=== PATIENT | male | born 1965 | race Caucasian/White ===

== ENCOUNTER 2016-11-23 12:43 | Outpatient (CLI) | payer OTHER ==
[~2016-11-23] VITALS: Ht 175.3 cm; Wt 70.0 kg
[2016-11-23 12:55] VITALS: BP 118/79; PULSE 89; RESP 16; Ht 175.3 cm; Wt 70.0 kg
--- NOTE | 2016-11-23 16:00 | CONS ---
[facility] INITIAL OUTPATIENT CONSULTATION NOTE PLACE OF SERVICE: [facility] DATE OF CONSULTATION: 11/23/2016 ASSESSMENT AND PLAN: A very pleasant and otherwise fairly healthy 51-year-old gentleman with a large right-sided groin hernia that has worsened over time and is in need of surgical repair. I recommended laparoscopic, possible open inguinal hernia repair likely with mesh. We also will evaluate the left side and if he needs it we can do a bilateral inguinal hernia repairs. I reviewed the operation in detail including the risks, benefits and alternatives with the patient (no family present during any of my discussions with the patient) and answered all his questions. The patient appeared to understand and agreed with the plans. With above assessment I have recommended the followin. Preoperative history and physical. 2. Schedule for laparoscopic, possible open, possible mesh, possible bilateral right inguinal hernia repair. Thank you again for allowing us to participate in the care of this very pleasant gentleman and I am certain his wonderful family. If there are any questions, please feel free to call me at [phone]. TOTAL VISIT TIME: 45 minutes of which more than half was spent in noxg-[id number]-apax discussion with the patient as well as coordination of care between multiple physicians and providers. Dear Dr. Britt: Thank you very much for allowing us to participate in the care of this very pleasant gentleman for his right inguinal hernia. HISTORY OF PRESENT ILLNESS: The patient is a very pleasant 51-year-old gentleman without significant past medical history and with only comorbidities of current smoker status and no prior surgeries who has been suffering from a right inguinal hernia for the last 2 years that appears to have been growing in size. He has not had any issues with bowel obstruction or visits to the emergency room because of this problem, however, he does describe worsening symptoms and at this point, he has enough changes to his lifestyle that he would like to have a surgical repair of this area. He reports having perhaps an early occurrence of bowel movements after eating food, but does not describe any significant diarrhea or constipation and no blood in the stool or urine. No other major complaints. PAST MEDICAL HISTORY: Tobacco user, approximately half to a pack per day. PAST SURGICAL HISTORY: None. ALLERGIES: NO KNOWN DRUG ALLERGIES. MEDICATIONS: Ketoconazole topical cream. SOCIAL HISTORY: The patient is single and is recently starting a monogamous relationship. He works in the [employer] business but does not have significant frequent lifting involved at work. Drinks to 3 to 6 beers per day and does not report any intravenous drug use. FAMILY HISTORY: Maternal grandfather with stomach or colon cancer. History of heart disease with two uncles. No diabetes, stroke or high blood pressure. REVIEW OF SYSTEMS: Other than the above-mentioned there are no other pertinent positives or pertinent negatives in a complete 14-point review of systems. He did report having hemorrhoids 12 years ago but they are gone currently. PHYSICAL EXAMINATION: GENERAL: The patient appears to be a very pleasant gentleman of non- descent, appearing stated age, sitting in a chair comfortably and in no acute distress. BMI is 22.8. VITAL SIGNS: He is afebrile and vital signs are stable. HEENT: Normocephalic and atraumatic. Extraocular muscles and hearing are grossly intact bilaterally and symmetrically. Sclerae are nonicteric. Oral cavity is clear; oral mucosa appeared to be pink and moist. Dentition: fair. NECK: Supple. There is no lymphadenopathy or JVD. There is no submental, submandibular or supraclavicular lymphadenopathy. CHEST: Rises symmetrically with each breath; patient is breathing comfortably. There are no audible wheezes, rales or rhonchi on the gross exam. HEART: HPulse is regular and palpable on the *right wrist. Capillary refill was normal. Carotid pulses are palpable bilaterally and symmetrically in the neck. EXTREMITIES: Lower extremities contain no pitting edema around the ankles bilaterally and symmetrically. ABDOMEN: Abdomen is soft, nontender and nondistended. There are no peritoneal signs or guarding. No evidence of ascites, organomegaly, caput medusae, engorged subcutaneous veins, or other abnormalities. GENITALIA: Right groin demonstrates a large inguinal hernia that appears to contain intestine (likely part of his colon). It is not associated with sharp tenderness and perhaps just mild discomfort. The skin overlying the area appears to be normal. Genitalia, otherwise, appeared to be normal. No evidence of hernia on the left. SKIN: Appears to be pink and feels warm to touch. NEUROLOGIC: Awake, alert, and follows commands appropriately. LABORATORY DATA: None for this visit. IMAGING: None for this visit. Dictated By: ANTHONY REYNA/MIGUEL Conf#: [id number] DID#: [id number] CC: YI BRITT MD;*EndCC* MTDD
== END 2016-11-23 16:48 | disposition home or self-care (01) ==
LOC: HPC 12:43
PROVIDERS: ATTEND Transplant Surgery
DX: K40.90 Unilateral inguinal hernia, without obstruction or gangrene, not specified as recurrent (principal); F17.200 Nicotine dependence, unspecified, uncomplicated
CPT/HCPCS: G0463

== ENCOUNTER 2016-12-10 07:00 | Day surgery (SDC) | payer OTHER ==
[2016-12-09 14:39] VITALS: BMI 22.8
[2016-12-10] VITALS (13 sets, daily range): BP systolic 103–142; BP diastolic 68–87; PULSE 64–88; RESP 8–21; Ht 175.3 cm; Wt 68.0 kg
[~2016-12-10] VITALS: Ht 175.3 cm; Wt 68.0 kg
[~2016-12-10 07:00] MED LIST: CEFAZOLIN 2 GM/50 ML (PMX) 50 ML IVPB ONE; D5W-0.45 NACL + KCL 20 MEQ 1,000 ML IV SCH
[2016-12-10] MEDS ORDERED: BUPIVACAINE 0.25%/EPI (SDV) 30 ML INJ ONE (09:07)
[2016-12-10] MEDS ORDERED: POLYMYXIN/BACITRACIN 1L IRRIG ONE (09:07)
--- NOTE | 2016-12-10 09:13 | HPN ---
Date/Time of Note Date/Time of Note DATE: 12/10/16 TIME: 09:00 Interval H&P Admission Note Pt. seen H&P reviewed: No system changes Pt. seen H&P reviewed. No system changes (I attest that I have seen and examined the patient and reviewed the operation in detail, as well as its risks , benefits and alternatives of the operation). I attest that I have seen and examined the patient and reviewed in detail the operation, and its associated risks, benefits and alternative. I have answered all the patient's questions to the best of my ability and the patient wishes to proceed. Please refer to rest of electronic medical record for additional updates. ANTHONY FOSTER M.D. Dec 10, 2016 09:13
[2016-12-10] MEDS ORDERED: ROCURONIUM 50 MG INJ ONE ×2 (09:24→10:27)
[2016-12-10] MEDS ORDERED: PROPOFOL 20 ML ONE (09:24)
[2016-12-10] MEDS ORDERED: MIDAZOLAM 1 MG/ML 2 ML INJ ONE (09:24)
[2016-12-10] MEDS ORDERED: ONDANSETRON 4 MG INJ ONE (09:25)
[2016-12-10] MEDS ORDERED: CEFAZOLIN 1 GM INJ ONE (09:42)
[2016-12-10] MEDS ORDERED: EPHEDrine SULFATE 50 MG/5 ML SYG ONE (10:12)
[2016-12-10] MEDS ORDERED: ROPIVACAINE 0.5 % 30 ML VIAL ONE (10:17)
[2016-12-10] MEDS ORDERED: HYDROmorphONE 2 MG/ML SYG ONE (10:19)
[2016-12-10] MEDS ORDERED: MEPERIDINE 25 MG INJ IV PRN (11:00)
[2016-12-10] MEDS ORDERED: LABETALOL HCL 20MG INJ IV PRN (11:00)
[2016-12-10] MEDS ORDERED: hydrALAzine 20 MG INJ IV PRN (11:00)
[2016-12-10] MEDS ORDERED: DIPHENHYDRAMINE 50 MG INJ IV PRN (11:00)
[2016-12-10] MEDS ORDERED: OXYCODONE/ACETAMINOPHEN (5/325) TAB PO PRN ×2 (11:00)
[2016-12-10] MEDS ORDERED: ONDANSETRON 4 MG INJ IV PRN (11:00)
[2016-12-10] MEDS ORDERED: METOCLOPRAMIDE 10 MG INJ IV PRN (11:00)
[2016-12-10] MEDS ORDERED: HYDROmorphONE (0.2 MG/ML) 10ML SYG IV PRN ×3 (11:00)
[2016-12-10] MEDS ORDERED: KETOROLAC 30 MG INJ ONE (11:07)
--- NOTE | 2016-12-10 11:59 | OPR ---
Date/Time of Note Date/Time of Note DATE: 12/10/16 TIME: 11:58 Operative Report Operative Findings [facility] INPATIENT OPERATIVE NOTE PLACE OF SERVICE: [facility] DATE OF SURGERY: 12/10/2016 PREOPERATIVE DIAGNOSIS: 1. Right inguinal hernia, indirect 2. History of tobacco use, approximately half to 1 pack per day POSTOPERATIVE DIAGNOSIS: 1. Right inguinal hernia, indirect 2. History of tobacco use, approximately half to 1 pack per day 3. Incidental umbilical hernia OPERATION: 1. Right inguinal hernia repair with mesh 2. Repair of incidental umbilical hernia without mesh SURGEON: Anthony Rye M.D. DATA TYPIST: Kieran ANESTHESIA: General endotracheal tube anesthesia ANESTHESIOLOGIST: Ryan Pereira M.D. BRIEF SUMMARY: An otherwise uncomplicated right inguinal hernia repair with mesh in addition to an incidental umbilical hernia without mesh were performed with findings of indirect umbilical hernia and an incidental umbilical hernia. BRIEF HISTORY: The patient is a very pleasant and otherwise fairly healthy 51- year-old gentleman with a large right-sided groin hernia that had worsened over time and was in need of surgical repair. I recommended laparoscopic, possible open inguinal hernia repair likely with mesh. I met with the patient (no family present during any of my discussions with the patient) and counseled t him regarding the possible options of treatment. We reviewed the operation in detail as well as the risks, benefits, alternatives, and expected outcomes of this operation. After careful consideration of all the risks, benefits, and alternatives, the patient appeared to understand those risks and wished to proceed with surgery. For a detailed report of my consultation with patient, please refer to my separate consultation note. STATEMENT OF THE INFORMED CONSENT: The patient appeared to understand the risks of the operation to include, but not be limited to risk of postoperative pain and scar tissue, possible infection or bleeding requiring other interventions such as opening the wound, placement of drainage catheters, or other operative interventions; possible injury to surrounding to structures including bowel, bladder, bile duct, or blood vessels, or solid organs such as liver, kidney, or pancreas requiring other interventions or procedures; possible leakage of bowel from anastomotic sites or suture lines causing significant increase in morbidity and mortality and requiring multiple interventions including but not limited to, placement of drainage catheters, imaging studies, as well as operative interventions; possible other source of sepsis such as urinary tract infections or pneumonias, or other sources of potentially life threatening problems such as deep venous thrombus formation causing pulmonary embolism, myocardial arrhythmias and infarctions, and even . After careful consideration of all their options, the patient and family appeared to understand and wished to proceed with surgery. DESCRIPTION OF PROCEDURE: After obtaining informed consent, the patient was brought into the operating room and was placed in a normal supine position, where successful general endotracheal tube anesthesia was performed. Intravenous access was already in place and intravenous antimicrobials had been appropriately chosen and dosed prior to the operation. The patient's abdominal skin was prepped and draped from the nipple line down to the level of the upper thighs including the groin and in the usual sterile fashion. We then called a surgical time-out where the patient's identification, date of , nature of the operation, allergies, presence of intravenous antimicrobials, presence of needed equipment, and any other concerns were reviewed and agreed upon by all members of the operating room team. We then started the operation by placing a 5 mm [employer] trocar into the peritoneal space through a left lower quadrant 5 mm skin incision and using direct entry technique visualizing all the layers of the abdominal wall as we entered. Upon entry to the peritoneal space, we did not notice any obvious evidence of injury to underlying structures. We insufflated the abdominal cavity to a maximum pressure of 15 mmHg and again noted no significant adhesions in the region and found presence of a right inguinal hernia as suggested by the preoperative evaluation. We placed a 12 mm trocar in the umbilical space as well as another 5 mm trocar in the right lower quadrant all under direct visualization and after injecting the sites with quarter percent Marcaine with epinephrine. With our instruments in place, we had excellent visualization and access to the pelvis. Inspection of the abdominal cavity showed no evidence of any hernia on the left side. There was a small umbilical hernia that was approximately 8 or 9 mm in greatest dimension that we discovered at the time of insertion of the 12 mm trocar. The right groin contained what appeared to be an indirect hernia without any abdominal contents within it. The bowel appeared to be viable. We then placed a transverse cut above the area of the hernia in the standard fashion on the peritoneum and took down the peritoneal covering from the right groin region until we were able to dissect the sac completely from the cord structures. After complete dissection of the sac from the cord structures, we ensured adequate hemostasis and then placed a 10 cm x 15 cm mesh (Covidien Symbotex oval [id number]) into the abdominal cavity and widely covered the area of the right hernia with mesh within the pocket. The mesh laid in the pocket nicely. We then secured the mesh onto the pubic tubercle and on the superior aspect and the most lateral aspect of the mesh using absorbable tacks. This was done under low insufflation. We again ensured adequate hemostasis and then covered the mesh with peritoneum using the peritoneal layer that we had taken down previously. After insuring adequate hemostasis, we removed all our equipment from the abdominal cavity including the pneumoperitoneum, closed the umbilical fascial defect after removal of a small umbilical sac that was present within the incidentally discovered umbilical hernia, using one figure-of -eight 0 Vicryl suture on a UR 6 needle, washed the wounds with copious amounts normal saline, injected the initial entry site with quarter percent Marcaine with epinephrine, and then closed the skin using interrupted 4 Monocryl suture. Light dressing was then applied. At the end of the operation, both the sponge count and needle count were reportedly correct x2. The patient tolerated the procedure without any reported complications. ESTIMATED BLOOD LOSS: 10 mL BLOOD OR BLOOD PRODUCT TRANSFUSIONS: None to my knowledge. SPECIMENS: 1. Umbilical hernia sac COMPLICATIONS: None. DISPOSITION: Recovery area. Disclaimer: Inadvertent spelling and grammatical errors are likely due to EHR/ dictation software use and do not reflect on the quality of delivered patient care. Also, please note that the electronic time recorded on this node does not necessarily reflect the actual time of the visit. ANTHONY REY M.D. Dec 10, 2016 11:59
[2016-12-10] MEDS ORDERED: DOCUSATE SODIUM 100 MG CAP PO PRN (12:30)
[2016-12-10] MEDS ORDERED: BISACODYL 10 MG SUPP PR PRN (12:30)
[2016-12-10] MEDS ORDERED: HYDROCODONE/APAP (5/325) TAB PO PRN ×2 (13:00)
== END 2016-12-10 13:20 | disposition home or self-care (01) ==
LOC: SDS 07:00
PROVIDERS: ATTEND Transplant Surgery
DX: K40.90 Unilateral inguinal hernia, without obstruction or gangrene, not specified as recurrent (principal); Z87.891 Personal history of nicotine dependence; F17.200 Nicotine dependence, unspecified, uncomplicated
CPT/HCPCS: 49505; 88302; J0690; J1170; J1885; J2250; J2405; J2795

== ENCOUNTER 2016-12-23 11:14 | Outpatient (CLI) | payer OTHER ==
[~2016-12-23] VITALS: Ht 175.3 cm; Wt 69.8 kg
[2016-12-23 11:21] VITALS: BP 106/63; PULSE 66; RESP 16; Ht 175.3 cm; Wt 69.8 kg
--- NOTE | 2016-12-23 11:58 | PN ---
Date/Time of Note Date/Time of Note DATE: 12/23/16 TIME: 11:50 Assessment/Plan Assessment/Plan Assessment/Plan [facility] Progress Note Date of Service: 12/23/16 Today's Impression & Plan: Overall doing well post op without major issues, but with concern for possible early recurrence. My clinical exam does not show definitive recurrence and there is a change that the bulge in the canal is a hematoma. Need further imaging to evaluate. No other major wound problems. With above assessment, I've recommended the following for today: 1. CT abd/pelvis without contrast 2. F/u with us after above Thank you again for your great care of this very pleasant patient and wonderful family. If there are any questions, please feel free to call me at [phone]. TOTAL VISIT TIME: 20 minutes of which more than half was spent in [id number] discussion with the patient, possibly including family, as well as coordination of care between multiple physicians and providers. Disclaimer: Inadvertent spelling or grammatical errors are likely due to EHR/ dictation software use and do not reflect on the overall quality of patient care. Updated Clinical Summary: The patient is a very pleasant and otherwise fairly healthy 51-year-old gentleman with a large right-sided groin hernia that had worsened over time and was in need of surgical repair. S/p an otherwise uncomplicated right inguinal hernia repair with mesh in addition to an incidental umbilical hernia without mesh were performed with findings of indirect umbilical hernia and an incidental umbilical hernia 12/10/16. Comorbidities: 1. Right inguinal hernia, indirect 2. History of tobacco use, approximately half to 1 pack per day 3. Incidental umbilical hernia Subjective: No major events or complaints other than feeling a bulge that was noticeable 2- 3 days after the operation (not associated with sig cough episode or lifting); no abd pain and no longer on pain medications; no n/v/d; no sob or cp; + flatus ; + BM and normal; + activity Objective: Vitals: See below Exam: GENERAL: On exam, the patient was sitting in a chair and appeared to be comfortable and in no acute distress. ABDOMEN: Soft, nontender and nondistended. Incisions are clean, dry and intact without any evidence of erythema, edema, discharge, or hernia. Right groin with non-reducible 7 cm tubular mass. No obvious change with Valsalva maneuver. Ring appeared intact. There are no peritoneal signs or guarding. SKIN: Skin appears to be pink and feels warm to touch. NEUROLOGIC: Patient is awake, alert, and follows commands appropriately. Exam/Review of Systems Vital Signs Vitals Vital Signs Date Time Temp Pulse Resp B/P Pulse Ox O2 Delivery O2 Flow Rate FiO2 12/23/16 11:21 97.5 66 16 106/63 100 Room Air ANTHONY FOSTER M.D. Dec 23, 2016 11:58
== END 2016-12-23 16:12 | disposition home or self-care (01) ==
LOC: HPC 11:14
PROVIDERS: ATTEND Transplant Surgery
DX: K40.90 Unilateral inguinal hernia, without obstruction or gangrene, not specified as recurrent (principal); K42.9 Umbilical hernia without obstruction or gangrene; Z87.891 Personal history of nicotine dependence
CPT/HCPCS: G0463

== ENCOUNTER 2016-12-30 13:00 | Outpatient (CLI) | payer OTHER ==
[~2016-12-30] VITALS: Ht 175.3 cm; Wt 68.9 kg
[2016-12-30 13:12] VITALS: BP 113/77; PULSE 73; RESP 16; Ht 175.3 cm; Wt 68.9 kg
--- NOTE | 2016-12-30 13:16 | PN ---
Date/Time of Note Date/Time of Note DATE: 12/30/16 TIME: 13:13 Assessment/Plan Assessment/Plan Assessment/Plan [facility] Progress Note Date of Service: 12/30/16 Today's Impression & Plan: Overall doing well post op without major issues; CT 12/25/16 showed fluid and edema in the scrotum, but no obvious recurrence. No need for further imaging or intervention. No other major wound problems. Should improve without intervention and with adequate time, with most of resolution occurring in the next few weeks. Discussed with patient and answered all his questions. With above assessment, I've recommended the following for today: 1. Symptomatic f/u with me prn in 3-4 weeks 2. F/u with PCP 3. Ok to resume work in 1 week with limitation of no heavy lifting for 2-3 additional weeks Thank you again for your great care of this very pleasant patient and wonderful family. If there are any questions, please feel free to call me at [phone]. TOTAL VISIT TIME: 20 minutes of which more than half was spent in [id number]-[id number] discussion with the patient, possibly including family, as well as coordination of care between multiple physicians and providers. Disclaimer: Inadvertent spelling or grammatical errors are likely due to EHR/ dictation software use and do not reflect on the overall quality of patient care. Updated Clinical Summary: The patient is a very pleasant and otherwise fairly healthy 51-year-old gentleman with a large right-sided groin hernia that had worsened over time and was in need of surgical repair. S/p an otherwise uncomplicated right inguinal hernia repair with mesh in addition to an incidental umbilical hernia without mesh were performed with findings of indirect umbilical hernia and an incidental umbilical hernia 12/10/16. CT 12/25/16 showed fluid and edema in the scrotum, but no obvious recurrence. Comorbidities: 1. Right inguinal hernia, indirect; s/p an otherwise uncomplicated right inguinal hernia repair with mesh in addition to an incidental umbilical hernia without mesh were performed with findings of indirect umbilical hernia and an incidental umbilical hernia 12/10/16 2. History of tobacco use, approximately half to 1 pack per day 3. Incidental umbilical hernia Subjective: No major events or complaints; no abd pain and no longer on pain medications; no n/v/d; no sob or cp; + flatus; + BM and normal; + activity; reports no worsening of his groin symptoms Objective: Vitals: See below Exam: GENERAL: On exam, the patient was sitting in a chair and appeared to be comfortable and in no acute distress. ABDOMEN: Soft, nontender and nondistended. Incisions are clean, dry and intact without any evidence of erythema, edema, discharge, or hernia. Right groin with non-reducible 7 cm tubular mass. No obvious change with Valsalva maneuver. Ring appeared intact. There are no peritoneal signs or guarding. SKIN: Skin appears to be pink and feels warm to touch. NEUROLOGIC: Patient is awake, alert, and follows commands appropriately. Exam/Review of Systems Vital Signs Vitals Vital Signs Date Time Temp Pulse Resp B/P Pulse Ox O2 Delivery O2 Flow Rate FiO2 12/30/16 13:12 98.1 73 16 113/77 99 Room Air ANTHONY FOSTER M.D. Dec 30, 2016 13:16
== END 2016-12-30 16:52 | disposition home or self-care (01) ==
LOC: HPC 13:00
PROVIDERS: ATTEND Transplant Surgery
DX: K40.90 Unilateral inguinal hernia, without obstruction or gangrene, not specified as recurrent (principal); K42.9 Umbilical hernia without obstruction or gangrene; Z87.891 Personal history of nicotine dependence
CPT/HCPCS: G0463

== ENCOUNTER 2017-02-03 13:55 | Outpatient (CLI) | payer OTHER ==
[~2017-02-03] VITALS: Ht 175.3 cm; Wt 70.9 kg
[2017-02-03 14:05] VITALS: BP 127/70; PULSE 82; RESP 16; Ht 175.3 cm; Wt 70.9 kg
--- NOTE | 2017-02-03 16:28 | PN ---
Date/Time of Note Date/Time of Note DATE: 02/03/17 TIME: 16:19 Assessment/Plan Assessment/Plan Assessment/Plan [facility] Progress Note Date of Service: 02/03/17 Today's Impression & Plan: Overall stable. Lump in the right side of scrotum above the right testicle is likely a seroma or hematoma. No evidence of hernia recurrence. In fact, the hernia bed appears to be strong and no obvious defect seen; no transmission of force with Valsalva maneuver. Area is non-tender (which is sig different than the last visit a few weeks ago). No indication for acute surgical intervention. I recommended repeat US of the area with focused view of the mass to assess for possible aspiration as an intervention. Discussed with patient and answered all his questions. With above assessment, I've recommended the following for today: 1. Scrotum/testicular ultrasound with focused view of mass in the right side of scrotum with possible aspiration of fluid if present 2. F/u with us after above Thank you again for your great care of this very pleasant patient and wonderful family. If there are any questions, please feel free to call me at [phone]. TOTAL VISIT TIME: 20 minutes of which more than half was spent in [id number]-ew-[id number] discussion with the patient, possibly including family, as well as coordination of care between multiple physicians and providers. Disclaimer: Inadvertent spelling or grammatical errors are likely due to EHR/ dictation software use and do not reflect on the overall quality of patient care. Updated Clinical Summary: The patient is a very pleasant and otherwise fairly healthy 51-year-old gentleman with a large right-sided groin hernia that had worsened over time and was in need of surgical repair. S/p an otherwise uncomplicated right inguinal hernia repair with mesh in addition to an incidental umbilical hernia without mesh were performed with findings of indirect umbilical hernia and an incidental umbilical hernia 12/10/16. CT 12/25/16 showed fluid and edema in the scrotum, but no obvious recurrence. Comorbidities: 1. Right inguinal hernia, indirect; s/p an otherwise uncomplicated right inguinal hernia repair with mesh in addition to an incidental umbilical hernia without mesh were performed with findings of indirect umbilical hernia and an incidental umbilical hernia 12/10/16 2. History of tobacco use, approximately half to 1 pack per day 3. Incidental umbilical hernia Subjective: No major events or complaints; no abd pain and not on pain medications; no n/v/d ; no sob or cp; + flatus; + BM and normal; + activity; reports no pain in his groin, but has noticed the mass still present; back to work; sexually active Objective: Vitals: See below Exam: GENERAL: On exam, the patient was sitting in a chair and appeared to be comfortable and in no acute distress. ABDOMEN: Soft, nontender and nondistended. Incisions are clean, dry and intact without any evidence of erythema, edema, discharge, or hernia. Right groin with non-reducible 3 cm ovoid mass (previously 7 cm tubular mass a few weeks prior). No obvious change with Valsalva maneuver. Ring appeared intact. There are no peritoneal signs or guarding. SKIN: Skin appears to be pink and feels warm to touch. NEUROLOGIC: Patient is awake, alert, and follows commands appropriately. Exam/Review of Systems Vital Signs Vitals Vital Signs Date Time Temp Pulse Resp B/P Pulse Ox O2 Delivery O2 Flow Rate FiO2 02/03/17 14:05 97.9 82 16 127/70 97 Room Air ANTHONY FOSTER M.D. Feb 03, 2017 16:28
== END 2017-02-03 17:00 | disposition home or self-care (01) ==
LOC: HPC 13:55
PROVIDERS: ATTEND Transplant Surgery
DX: K40.90 Unilateral inguinal hernia, without obstruction or gangrene, not specified as recurrent (principal); K42.9 Umbilical hernia without obstruction or gangrene; Z87.891 Personal history of nicotine dependence
CPT/HCPCS: G0463

== ENCOUNTER 2017-03-24 10:13 | Outpatient (CLI) | payer OTHER ==
[~2017-03-24] VITALS: Ht 175.3 cm; Wt 72.7 kg
[2017-03-24 10:22] VITALS: BP 112/71; PULSE 82; RESP 16; Ht 175.3 cm; Wt 72.7 kg
--- NOTE | 2017-03-25 16:08 | PN ---
Date/Time of Note Date/Time of Note DATE: 03/25/17 TIME: 16:00 Assessment/Plan Assessment/Plan Assessment/Plan [facility] Progress Note Date of Service: 03/25/17 Today's Impression & Plan: Overall stable. Lump in the right side of scrotum above the right testicle has remained stable and same size. US showed findings compatible with hematoma. No evidence of hernia recurrence. Also shows bilateral testicular calcifications which should be evaluated by urology. Since this hematoma is also within the extra-abdominal space, would be great to get our urologic colleagues opinion about management. No indication for acute surgical intervention. I recommended symptomatic follow up. Discussed with patient and answered all his questions. With above assessment, I've recommended the following for today: 1. Urology consult as above 2. F/u with us prn Thank you again for your great care of this very pleasant patient and wonderful family. If there are any questions, please feel free to call me at [phone]. TOTAL VISIT TIME: 20 minutes of which more than half was spent in [id number] discussion with the patient, possibly including family, as well as coordination of care between multiple physicians and providers. Disclaimer: Inadvertent spelling or grammatical errors are likely due to EHR/ dictation software use and do not reflect on the overall quality of patient care. Updated Clinical Summary: The patient is a very pleasant and otherwise fairly healthy 51-year-old gentleman with a large right-sided groin hernia that had worsened over time and was in need of surgical repair. S/p an otherwise uncomplicated right inguinal hernia repair with mesh in addition to an incidental umbilical hernia without mesh were performed with findings of indirect umbilical hernia and an incidental umbilical hernia 12/10/16. CT 12/25/16 showed fluid and edema in the scrotum, but no obvious recurrence. Testicular US 02/17/17 showed findings compatible with hematoma. No evidence of hernia recurrence. Also shows bilateral testicular calcifications. Comorbidities: 1. Right inguinal hernia, indirect; s/p an otherwise uncomplicated right inguinal hernia repair with mesh in addition to an incidental umbilical hernia without mesh were performed with findings of indirect umbilical hernia and an incidental umbilical hernia 12/10/16 2. History of tobacco use, approximately half to 1 pack per day 3. Incidental umbilical hernia 4. Testicular US 02/17/17 showed findings compatible with hematoma. No evidence of hernia recurrence. Also shows bilateral testicular calcifications. Subjective: No major events or complaints; no abd pain and not on pain medications; no n/v/d ; no sob or cp; + flatus; + BM and normal; + activity; reports no pain in his groin, but has noticed the mass still present; working; sexually active; bothered by the mass in the scrotum Objective: Vitals: See below Exam: GENERAL: On exam, the patient was sitting in a chair and appeared to be comfortable and in no acute distress. ABDOMEN: Soft, nontender and nondistended. Incisions are clean, dry and intact without any evidence of erythema, edema, discharge, or hernia. Right groin with non-reducible 3 cm ovoid mass unchanged from prior visit early January ( previously 7 cm tubular mass a few weeks prior). No obvious change with Valsalva maneuver. Ring appeared intact. There are no peritoneal signs or guarding. SKIN: Skin appears to be pink and feels warm to touch. NEUROLOGIC: Patient is awake, alert, and follows commands appropriately. Exam/Review of Systems Vital Signs Vitals Vital Signs Date Time Temp Pulse Resp B/P Pulse Ox O2 Delivery O2 Flow Rate FiO2 03/24/17 10:22 98.1 82 16 112/71 96 Room Air ANTHONY FOSTER M.D. March 25, 2017 16:08
== END 2017-03-24 15:16 | disposition home or self-care (01) ==
LOC: HPC 10:13
PROVIDERS: ATTEND Transplant Surgery
DX: N50.9 Disorder of male genital organs, unspecified (principal); R19.09 Other intra-abdominal and pelvic swelling, mass and lump; S30.22XA Contusion of scrotum and testes, initial encounter; Z87.891 Personal history of nicotine dependence
CPT/HCPCS: G0463